=== PATIENT | male | born 1970 | race Caucasian/White ===

== ENCOUNTER 2019-04-06 09:05 | Day surgery (SDC) | payer BC ==
[2019-04-04 11:17] VITALS: BMI 33.5
--- NOTE | 2019-04-05 23:37 | HP ---
HISTORY OF PRESENT ILLNESS: Mr. Wood presents today for second opinion from Dr. Arroyo for lower back and right lower extremity L5 pains with numbness and fatigue that began back in June 2018 and has slowly progressed over that time. He has an MRI from [facility] on disk that reveals bilateral pars defects with early grade 1 slip and associated bilateral neuroforaminal narrowing. This fits his symptoms well. He already had a recommendation of a multilevel lumbar fusion. PAST MEDICAL HISTORY: Significant for hypercholesterolemia and chronic pain syndrome. PAST SURGICAL HISTORY: None. CURRENT MEDICATIONS: None listed. ALLERGIES: NO KNOWN DRUG ALLERGIES. PHYSICAL EXAMINATION: GENERAL: The patient is alert, oriented x3. NEUROLOGICAL: Gait is mildly antalgic. Lower extremity motor exam is normal. Straight leg raise is negative bilaterally. He has equal and present reflexes at the patella and Achilles tendons bilaterally. ASSESSMENT: Lumbar spondylolysis, lumbar radiculopathy, and lumbar back pain. PLAN: Dr. Riojas met with the patient, reviewed imaging, advocated for an L5-S1 facetectomy and fusion. He explained to the patient the risks, benefits, and alternatives to the procedure. The patient expressed understanding and elected to move forward with surgery as discussed. I do believe the patient is mentally competent and capable of making medical decisions for himself. We will move forward with surgery as planned. Job ID: [id number]
[2019-04-06] MEDS ORDERED: Bupivacaine HCl 0.5%/Epinephrine 1:200,000/PF 30 ml Vial ONE (09:36)
[2019-04-06] MEDS ORDERED: Thrombin 5000 UNITS/5 ML VIAL ONE (09:37)
[2019-04-06] MEDS ORDERED: Fentanyl 100 MCG/2 ML VIAL ONE ×2 (09:48→13:43)
[2019-04-06] MEDS ORDERED: Albumin 5% 500 ML ONE (10:00)
[2019-04-06] MEDS ORDERED: Midazolam HCl 2 mg/2 ml Vial ONE (10:16)
[2019-04-06 10:31] LABS: #Basophils 0.1 thou/uL (0.0-0.2); #Eosinphils 0.1 thou/uL (0.0-0.7); #Lymphocytes 1.1 thou/uL (1.20-3.40); #Monocytes 0.4 thou/uL (0.11-0.59); %Basophils 1.1 % (0.0-1.0); %Eosinophils 2.8 % (0.0-10.0); %Monocytes 7.9 % (0.0-10.0); %Neutrophils 64.3 % (42.0-75.0); Hemoglobin 14.7 g/dL (14.0-18.0); Mean Corpuscular HGB CONC 33.7 g/dL (32.0-36.0); Mean Corpuscular Hemoglobin 29.5 pg (27.0-31.0); Mean Corpuscular Volume 87.6 fL (78.0-98.0); Mean Platelet Volume 6.7 fL (7.4-10.4); Platelet Count 213 thou/uL (130-400); RBC Distribution Width 11.5 % (11.5-14.5); Red Blood Cell (RBC) Count 4.98 mill/uL (4.70-6.10); White Blood Cell (WBC) Count 4.7 thou/uL (4.8-10.8)
[2019-04-06] MEDS ORDERED: Rocuronium Bromide 10 MG/ML (10ML VIAL) ONE (11:32)
[2019-04-06] MEDS ORDERED: Ondansetron PF 4 MG/2 ML Vial ONE (11:32)
[2019-04-06] MEDS ORDERED: PHENYLEPHRINE-NS 100 MCG/ML 10 ML SYRINGE ONE (11:32)
[2019-04-06] MEDS ORDERED: Glycopyrrolate 0.2 MG/ML 5 ML SYRINGE ONE (11:32)
[2019-04-06] MEDS ORDERED: ePHEDrine 50 MG/ML VIAL ONE (11:32)
[2019-04-06] MEDS ORDERED: Lidocaine 1% PF 5 ML VIAL ONE (11:32)
[2019-04-06] MEDS ORDERED: PROPOFOL 200 MG/20 ML VIAL ONE (11:32)
[2019-04-06] MEDS ORDERED: Tamsulosin HCl 0.4 MG CAP ONE (13:57)
[2019-04-06] MEDS ORDERED: Morphine 2 MG/ML SYRINGE ONE (14:40)
--- NOTE | 2019-04-07 13:48 | OP ---
DATE OF PROCEDURE: 04/06/2019 SUMMER LAW CLERK: Wade Sanchez PA-C. INDICATION: Pain. DIAGNOSES: Lumbar spondylolisthesis, lumbar radiculopathy, lumbar stenosis. PROCEDURES: L5-S1 decompression, facetectomies and posterolateral instrumented fusion, placement of allograft, and placement of autograft. ANESTHESIA: General. DESCRIPTION OF PROCEDURE: The patient was brought into the operating room, placed under general anesthesia. He was flipped from the supine to prone position on the operating room table. A linear incision was planned over the L5-S1 segment. After prepping and draping and after an appropriate preoperative pause, the incision was created. The soft tissues were swept away from midline. Self-retaining retractors were placed in the wound for optimal exposure. After confirming the appropriate level with C-arm fluoroscopy, Rongeurs, Kerrisons, and high-speed cutting drill bit were used to perform a decompression at L5-S1 to include the facet joints. The pedicle screws were then placed within the pedicles of L5 and S1 with the aid of C-arm fluoroscopy. An intraoperative 3D CT scan was performed to confirm appropriate placement of hardware. Rods were then placed across the screw head and final tightened. Allograft and autograft material were placed in the lateral confines of the instrumentation construct. The wound was irrigated. Hemostasis was maintained throughout. The wound was then closed in anatomic layers and a pressure dressing was applied. There were no known procedural complications. Job ID: [id number]
== END 2019-04-06 16:30 | disposition home or self-care (01) ==
LOC: SDC 09:05
PROVIDERS: ATTEND Neurological Surgery
PROC: 0SG30AJ Fusion of Lumbosacral Joint with Interbody Fusion Device, Posterior Approach, Anterior Column, Open Approach (ICD-10-PCS; principal; 2019-04-06)
PROC: 01NB0ZZ Release Lumbar Nerve, Open Approach (ICD-10-PCS; principal; 2019-04-06)
PROC: 0SB20ZZ Excision of Lumbar Vertebral Disc, Open Approach (ICD-10-PCS; principal; 2019-04-06)
PROC: 0SG0071 Fusion of Lumbar Vertebral Joint with Autologous Tissue Substitute, Posterior Approach, Posterior Column, Open Approach (ICD-10-PCS; principal; 2019-04-06)
DX: M48.061 Spinal stenosis, lumbar region without neurogenic claudication (principal); M43.16 Spondylolisthesis, lumbar region; M54.16 Radiculopathy, lumbar region; G89.4 Chronic pain syndrome; I10 Essential (primary) hypertension; E78.5 Hyperlipidemia, unspecified; E78.00 Pure hypercholesterolemia, unspecified
CPT/HCPCS: 36415; 76000; 85025; 86850; 86900; 86901; C1713; J0131; J0670; J0690; J2001; J2250; J2270; J2405; J2704; J3010; J3490; P9045